=== PATIENT | male | born 1990 | race Caucasian/White ===

== ENCOUNTER 2022-11-16 21:56 | Emergency (ER) | payer OTHER ==
[~2022-11-16] VITALS: Ht 190.5 cm; Wt 113.4 kg
--- NOTE | 2022-11-16 23:00 | NUR ---
BIBSELF C/O L ANKLE PAIN S/P PLAYING BASKETBALL. PT A/OX4. TOLERATING R/A WELL WITH NO RESP DISTRESS.
[2022-11-16] MEDS ORDERED: IBUPROFEN 400 MG TABLET ONE (23:10)
[2022-11-16] MEDS ORDERED: IBUPROFEN 400 MG TABLET PO ONE (23:30)
--- NOTE | 2022-11-17 00:31 | NUR ---
SPLINT APPLIED TO L ANKLE
--- NOTE | 2022-11-17 00:34 | NUR ---
Patient discharged to home in stable condition. Written and verbal after care instructions given. Patient verbalizes understanding of instruction. pt ambulatory with a steady gait with crutches
[2022-11-17 00:35] VITALS: BP 140/75
== END 2022-11-17 00:35 | disposition home or self-care (01) ==
LOC: ER 21:58
DX: S82.892A Other fracture of left lower leg, initial encounter for closed fracture (principal); Z88.8 Allergy status to other drugs, medicaments and biological substances; X37.1XXA Tornado, initial encounter; Y93.67 Activity, basketball; Y92.89 Other specified places as the place of occurrence of the external cause; Y99.8 Other external cause status
CPT/HCPCS: 73610-TC; 73630-TC